=== PATIENT | male | born 1995 | race Caucasian/White ===

== ENCOUNTER 2025-04-25 14:18 | Outpatient (AMB) | payer BC, SELFPAY ==
--- NOTE | 2025-04-25 14:27 | MHC.OFFVIS ---
Intake Visit Reasons: Vasectomy Consult Intake Note: New Patient is present for Vasectomy consult Urology Rx:none Blood Thinners:none Hospitality Host Required: No Accompanied by: Self / Same As Patient Allergies cefaclor (From Ceclor) Allergy (Mild, Verified 04/25/25 14:31) Unknown HPI Comments Details: Bartolo is a very pleasant male. He is a patient of Dr Guzman. He is seen for the following urologic condition - anxiety about health - Vasectomy evaluation Vasectomy evaluation The patient presents for vasectomy consultation. He is currently He has fathered - 2 child, with a single partner. The youngest child is - 3 years old. His partner is aware and permissive for a vasectomy Current form of control is barrier. 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 Patient education has been provided via [facility] video, via printed information, risks of failure, recovery time, bruising and potential pain syndrome have been stressed Discussion today focused on the presence of vasectomy and the risks, benefits and alternatives that are available. Vasectomy as intended as a permanent form of control. Printed information and literature was provided to the patient. Overall there is a one in 2500 failure rate. This can occur at any time after vasectomy. Risks were discussed highlighting hematoma, spermatocele, epididymal congestion, development of sperm antibodies, and development of chronic pain estimated between 1-5%. The procedure was reviewed in detail. Anatomical diagrams of the male genitalia were used to explain the location of the vas deferens. The vas deferens will be transected, the proximal end will be cauterized, a metal clip would be applied to separate the 2 vas deferens ends. It was explained the procedure will be done in the office and takes approximately 10-15 minutes. Less common problems that arise with vasectomy include hematoma, bleeding, allergic reaction to anesthetic, epididymal infection, epididymal congestion, scrotal discomfort, spermatic leak, spermatic granuloma and the possibility of antisperm antibodies. He understands these risks and wishes to proceed. Consent was signed at the office today. He also understands that it takes 12 weeks for sperm to fully clear the system. He will need to provide a semen sample at 12 weeks and if this is not clear a 2nd sample at 16 weeks. Medical clearance to stop using protection will only be provided if he satisfies published criteria for sperm clearance. Review of Systems Const Denies chills and Denies fever(s) Card Reports no additional complaints and Denies syncope Resp Denies cough GI Denies abdominal pain and Denies heartburn Reports as per HPI and Denies change in libido Neuro Denies syncope Psych Denies change in libido Endo Denies change in libido Physical Exam Const General: cooperative, healthy appearing, comfortable and no acute distress Orientation/consciousness: patient oriented x3 HEENT Face and sinus: Yes normal facial exam Mouth: moist mucous membranes Neck Neck: Yes normal visual inspection, Yes full ROM and Yes trachea midline Chest Chest palpation & inspection: normal inspection of the chest Resp Effort & Inspection: normal respiratory effort, able to speak in complete sentences and no respiratory distress GI Inspection: Yes normal to inspection Back/Spine/Pelvis Cervical Spine: normal cervical lordosis Thoracic/Lumbar Spine: thoracic and lumbar spine normal to inspection Skin General skin exam: no rashes or lesions noted Neuro General: patient oriented x3, gait normal, tone normal and moves all extremities Extrem General: Yes normal to inspection and Yes capillary refill normal Assessment & Plan Assessment & Plan (1) Anxiety about health: Code(s): R45.89 - Other symptoms and signs involving emotional state Category: Medical Plan Schedule vasectomy Medications: New diazepam Take medication after arrival at office 2 mg PO BID PRN 2 tabs 0RF anxiety 1 day R45.89 - Other symptoms and signs involving emotional state tramadol 50 mg PO Q8H PRN 7 tabs 0RF pain N43.3 - Hydrocele, unspecified, R45.89 - Other symptoms and signs involving emotional state Patient Instructions: This note is constructed using voice recognition software. While every effort has been made to ensure accuracy medical illustrator errors may have been included. Imaging studies, laboratory and physical exam results were discussed and reviewed in detail. No major barriers to patient understanding were identified. An opportunity to ask questions regarding the treatment plan was provided. All questions were answered. The patient expressed understanding and agreement with the above treatment plan. The patient is aware they should contact our office by phone for worsening of their current condition or the appearance of new urologic symptoms. Compliance is encouraged with any medications and followup testing that is ordered. It is a privilege to participate in the urologic care of your patient. If you have any questions or concerns regarding treatment for the above conditions, or other urologic issues, please do not hesitate to contact me. The office telephone contact is [phone]. Sincerely, Dr Shaq Laird MD, [facility] - Urology Compassionate Specialist Care for the Genitourinary System Coding Level of Care Code New Pt Level 4 (41621) Diagnoses Anxiety about health R45.89
== END 2025-04-25 15:12 | disposition home or self-care (01) ==
LOC: HO.HUSH 14:19
PROVIDERS: PCP Internal Medicine; Visit Provider Urology
DX: R45.89 Other symptoms and signs involving emotional state (principal)
CPT/HCPCS: 99204